=== PATIENT | female | born 1990 | race Caucasian/White ===

== ENCOUNTER 2016-07-13 00:21 | Emergency (ER) | payer MEDICAID ==
[~2016-07-13] VITALS: Ht 167.6 cm; Wt 61.7 kg
[2016-07-13] MEDS ORDERED: AMOX500T2 PO (01:06)
[2016-07-13] MEDS ORDERED: TRAM50TA2 PO (01:06)
[2016-07-13] MEDS ORDERED: IBUP-1780 PO (01:06)
[2016-07-13 02:31] LABS: BILIRUBIN,URINE NEGATIVE (NEGATIVE); KETONES,URINE NEGATIVE (NEGATIVE); LEUKOCYTE ESTERASE ,URINE 3+ (NEGATIVE); NITRITE,URINE NEGATIVE (NEGATIVE); PH,URINE 6 (5-9); PROTEIN,URINE 2+ (NEGATIVE); UROBILINOGEN,URINE 1 MG/DL (NORMAL)
[2016-07-13] MEDS ORDERED: CEPHALEXIN 250 MG (KEFLEX) CAP PO ONE (03:00)
[2016-07-13] MEDS ORDERED: CEPH-507 PO (03:02)
--- NOTE | 2016-07-13 03:02 | ED General ---
General Chief Complaint: Oral/Throat Problems Stated Complaint: POSS STREP THROAT Nursing Triage Note: sore throat starting yesterday and possible uti starting approx 5 days ago. started amoxicillin approx 4 days ago and no relief. having urgency, frequency, pressure after urination. pt is 2 months post . Nursing Sepsis Screen: No Definite Risk Source of Information: Patient Exam Limitations: No Limitations History of Present Illness Time Seen by Provider: 01:22 Initial Comments Patient presents with urinary frequency and sore throat. See history above. She is here with her daughter as well who just tested positive for strep pharyngitis. Allergies and Home Medications Allergies Coded Allergies: No Known Drug Allergies (Unverified , 07/13/16) Home Medications Amoxicillin 500 Mg Tablet, 500 MG PO TID, (Reported) Cephalexin 500 Mg Capsule, 500 MG PO QID, #28 Prescribed by: MARLEN PERSON on 07/13/16 0302 Ibuprofen 800 Mg Tablet, 800 MG PO Q8H PRN for PAIN, (Reported) Tramadol HCl 50 Mg Tablet, 50 MG PO Q6H PRN for PAIN-MILD, (Reported) Constitutional: no symptoms reported EENTM: see HPI Respiratory: no symptoms reported Cardiovascular: no symptoms reported Gastrointestinal: no symptoms reported Genitourinary: see HPI : No Musculoskeletal: no symptoms reported Skin: no symptoms reported Psychiatric/Neurological: No Symptoms Reported Hematologic/Lymphatic: No Symptoms Reported Past Ezhivun-Tzkgmm-Byvgzz Hx Patient Social History Alcohol Use: Denies Use Recreational Drug Use: No (marijuana) Smoking Status: Current Everyday Smoker Type Used: Cigarettes 2nd Hand Smoke Exposure: Yes Recent Foreign Travel: No Contact w/Someone Who Travel: No Recent Infectious Disease Expo: No Recent Hopitalizations: No Immunizations Up To Date Tetanus Booster (TDap): Less than 5yrs PED Vaccines UTD: No Seasonal Allergies Seasonal Allergies: No Surgeries HX Surgeries: Yes (Ear tubes) Respiratory Hx Respiratory Disorders: No Cardiovascular Hx Cardiac Disorders: No Neurological Hx Neurological Disorders: No Reproductive System : No Hx : 4 Hx Para: 4 Hx Reproductive Disorders: No Sexually Transmitted Disease: No Genitourinary Hx Genitourinary Disorders: No Gastrointestinal Hx Gastrointestinal Disorders: No Musculoskeletal Hx Musculoskeletal Disorders: No Endocrine Hx Endocrine Disorders: No (thyroid issues during ) HEENT HX ENT Disorders: No Cancer Hx Cancer: No Psychosocial Hx Psychiatric Problems: No Integumentary HX Skin/Integumentary Disorder: No Blood Transfusions Hx Blood Disorders: No Physical Exam Vital Signs Vital Sign - Last 12Hours 07/13/16 00:52 Temp 97.2 Pulse 76 Resp 18 B/P (MAP) 124/96 Pulse Ox 99 O2 Delivery Room Air Capillary Refill : Less Than 3 Seconds General Appearance: No Apparent Distress, WD/WN HEENT: PERRL/EOMI, Normal ENT Inspection, Pharyngeal Erythema Neck: Normal Inspection Respiratory: Lungs Clear, Normal Breath Sounds, No Accessory Muscle Use, No Respiratory Distress Cardiovascular: Regular Rate, Rhythm, No Edema, No Murmur Gastrointestinal: Non Tender, Soft Extremity: Normal Inspection Neurologic/Psychiatric: Alert, Oriented x3, No Motor/Sensory Deficits, Normal Mood/Affect, 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 Rapid strep test was negative. Antibiotics changed to Keflex. First dose given in the emergency room. Daughter was treated for strep pharyngitis. Departure Impression Impression: Primary Impression: Urinary tract infection Qualified Codes: N39.0 - Urinary tract infection, site not specified Additional Impression: Sore throat Disposition: HOME, SELF-CARE Condition: Improved Departure-Patient Inst. Decision time for Depature: 03:01 Referrals: NO,LOCAL PHYSICIAN (PCP) Primary Care Physician Patient Instructions: Urinary Tract Infections in Adults Add. Discharge Instructions: Drink plenty of clear liquids. Follow-up on your urine culture results in about 48 hours with a phone call to your primary care provider or the ER. Complete your antibiotics as prescribed. Replace your toothbrush and any other oral instruments about 4 days into antibiotic treatment. All discharge instructions reviewed with patient and/or family. Voiced understanding. Scripts Cephalexin (Keflex) 500 Mg Capsule 500 MG PO QID, #28 CAP Prov: MARLEN BUCK MD 07/13/16 MARLEN BUCK MD Jul 13, 2016 03:02
[2016-07-13 03:36] VITALS: BP 124/96
== END 2016-07-13 03:36 | disposition home or self-care (01) ==
LOC: ER 00:25
DX: N39.0 Urinary tract infection, site not specified (principal); J02.9 Acute pharyngitis, unspecified; F17.210 Nicotine dependence, cigarettes, uncomplicated
CPT/HCPCS: 81000; 87088; 87186; 87430; 99282

== ENCOUNTER 2017-06-19 08:15 | Emergency (ER) | payer SELFPAY ==
[~2017-06-19] VITALS: Ht 165.1 cm; Wt 74.8 kg
[~2017-06-19 08:15] MED LIST: AMOX500T2 PO; CEPH-507 PO; IBUP-1780 PO; TRAM50TA2 PO
[2017-06-19] MEDS ORDERED: AMOX500C2 PO (08:44)
--- NOTE | 2017-06-19 08:45 | ED EENT ---
History of Present Illness General Chief Complaint: Oral/Throat Problems Stated Complaint: THROAT SORE AND SWOLLEN Nursing Triage Note: PT AMBULATED TO ROOM 10 W/O DIFFICULTIES. PT C/O SORE THROAT THAT STARTED LAST NIGHT. C/O FEELING OF PRESSURE IN EARS AND SINUSES. PT STATED SHE WAS HAVING DIFFICULTIES BREATHING AND SWALLOWING THIS MORNING. Source: patient Exam Limitations: no limitations History of Present Illness Date Seen by Provider: Jun 19, 2017 Time Seen by Provider: 08:33 Initial Comments Here with report of sore throat, tonsillar swelling and white patches noted on the tonsils. She did start amoxicillin that she had at home but it isn't prescription. She states that she has history of frequent strep throat. Complains of nasal congestion and frontal sinus tenderness. Reports feeling hot but denies nausea, vomiting or diarrhea. Denies abdominal pain. Timing/Duration: gradual Severity: moderate Location: throat Modifying Factors: Improves With Antibiotics Associated Symptoms: No cough, No ear drainage, fever, nasal congestion/ drainage, sinus infection, sore throat, No voice change Allergies and Home Medications Allergies Coded Allergies: No Known Drug Allergies (Unverified , 07/13/16) Home Medications Amoxicillin 500 Mg Tablet, 500 MG PO TID, (Reported) Cephalexin 500 Mg Capsule, 500 MG PO QID Prescribed by: MARLEN PERSON on 07/13/16 0302 Ibuprofen 800 Mg Tablet, 800 MG PO Q8H PRN for PAIN, (Reported) Tramadol HCl 50 Mg Tablet, 50 MG PO Q6H PRN for PAIN-MILD, (Reported) Patient Home Medication List Home Medication List Reviewed: Yes Review of Systems Constitutional: see HPI, No chills, fever Eyes: No Symptoms Reported Ears: No Symptoms Reported Nose: see HPI Mouth: no symptoms reported Throat: see HPI Respiratory: No short of breath, No wheezing Cardiovascular: no symptoms reported Gastrointestinal: no symptoms reported Past Lwxjwpj-Pgezkh-Jtwadv Hx Patient Social History Alcohol Use: Denies Use Recreational Drug Use: No Smoking Status: Current Everyday Smoker Type Used: Cigarettes 2nd Hand Smoke Exposure: Yes Recent Foreign Travel: No Contact w/Someone Who Travel: No Recent Infectious Disease Expo: No Recent Hopitalizations: No Physical Abuse: No Sexual Abuse: No Immunizations Up To Date Tetanus Booster (TDap): Less than 5yrs PED Vaccines UTD: No Seasonal Allergies Seasonal Allergies: No Surgeries History of Surgeries: Yes (Ear tubes) Respiratory History of Respiratory Disorde: No Cardiovascular History of Cardiac Disorders: No Neurological History of Neurological Disord: No Reproductive System Hx Reproductive Disorders: No Sexually Transmitted Disease: No Gastrointestinal History of Gastrointestinal Di: No Musculoskeletal History of Musculoskeletal Dis: No Endocrine History of Endocrine Disorders: No (thyroid issues during ) Cancer History of Cancer: No Psychosocial History of Psychiatric Problem: No Suicide Risk Score: 0 Integumentary History of Skin or Integumenta: No Blood Transfusions History of Blood Disorders: No Reviewed Nursing Assessment Reviewed/Agree w Nursing PMH: Yes Family Medical History Significant Family History: No Pertinent Family Hx Physical Exam Vital Signs Vital Signs - First Documented 06/19/17 08:21 Temp 97.7 Pulse 109 Resp 18 B/P (MAP) 108/81 (90) O2 Delivery Room Air General Appearance: WD/WN, no apparent distress Nose: sinus tenderness, other (moderate bilateral congestion) Mouth/Throat: pharynx swelling, tonsillar exudate, tonsillar swelling Neck: full range of motion, supple, lymphadenopathy (R), lymphadenopathy (L) Cardiovascular: regular rate, rhythm, no murmur Respiratory: lungs clear, normal breath sounds Neurologic/Psychiatric: alert, oriented x 3 Skin: normal color, warm/dry Progress/Results/Core Measures Results/Orders Vital Signs/I&O Vital Sign - Last 12Hours 06/19/17 08:21 Temp 97.7 Pulse 109 Resp 18 B/P (MAP) 108/81 (90) O2 Delivery Room Air Blood Pressure Mean: 90 Progress Note : Progress Note Seen and evaluated. Discharged home with return precautions. Patient verbalize understanding instructions and agreement with plan. We will treat subjectively for strep pharyngitis based on symptoms and physical exam findings. Patient is in agreement. Departure Impression Impression: Primary Impression: Streptococcal sore throat Disposition: 01 HOME, SELF-CARE Condition: Stable Departure-Patient Inst. Decision time for Depature: 08:43 Referrals: NO,LOCAL PHYSICIAN (PCP/Family) Primary Care Physician Patient Instructions: Strep Throat (DC) Add. Discharge Instructions: All discharge instructions reviewed with patient and/or family. Voiced understanding. Take medications as directed. Follow-up with your DrRuslan in a few days for recheck. Return for worse pain, fever, vomiting, weakness, breathing problems or other concerns as needed. You may take ibuprofen 800 mg every 8 hours as needed for pain. You may take Tylenol/acetaminophen 1000 mg every 8 hours as needed for pain. Drink plenty of fluids. Scripts Amoxicillin (Amoxicillin) 500 Mg Capsule 500 MG PO TID, #21 CAP 0 Refills Prov: LEONARD CARRERA MD 06/19/17 LEONARD CARRERA MD Jun 19, 2017 08:45
[2017-06-19 08:56] VITALS: BP 106/80
== END 2017-06-19 08:49 | disposition home or self-care (01) ==
LOC: EDUNIT# 08:15 → ER 08:17
DX: J02.0 Streptococcal pharyngitis (principal); F17.210 Nicotine dependence, cigarettes, uncomplicated; Z96.22 Myringotomy tube(s) status
CPT/HCPCS: 99282

== ENCOUNTER 2018-08-15 20:57 | Emergency (ER) | payer SELFPAY ==
[~2018-08-15] VITALS: Ht 167.6 cm; Wt 79.4 kg
[~2018-08-15 20:57] MED LIST changes: +AMOX500C2 PO
[2018-08-15] MEDS ORDERED: RX-TRIMETH/SULFA. 160-800 MG (BACTRIM DS) TAB PPK#2 PO STA (21:39)
[2018-08-15] MEDS ORDERED: SULF1TAB35 PO (21:45)
--- NOTE | 2018-08-15 21:45 | ED Integumentary General ---
General Chief Complaint: Skin/Wound Problems Stated Complaint: SKIN LESION ON R THIGH Nursing Triage Note: skin wound to medial thigh. Source: patient Exam Limitations: no limitations History of Present Illness Date Seen by Provider: August 15, 2018 Time Seen by Provider: 21:41 Initial Comments To ER with concerns of an abscess to the proximal medial left thigh for a couple of days. No fevers or chills. No nausea or vomiting or systemic symptoms. She is concerned this may be MRSA. She has similar appearing lesions to the right low proximal medial thigh and to the left axilla which is been recurrent issues for her. Timing/Duration: just prior to arrival Severity: moderate Associated Symptoms: denies symptoms Allergies and Home Medications Allergies Coded Allergies: No Known Drug Allergies (Unverified , 07/13/16) Patient Home Medication List Home Medication List Reviewed: Yes Review of Systems Review of Systems Constitutional: see HPI EENTM: see HPI Respiratory: no symptoms reported Cardiovascular: no symptoms reported Genitourinary: no symptoms reported Musculoskeletal: no symptoms reported Skin: no symptoms reported Psychiatric/Neurological: No Symptoms Reported Past Guqbvuj-Patglh-Vcoaja Hx Patient Social History Alcohol Use: Denies Use Recreational Drug Use: No Smoking Status: Current Everyday Smoker Type Used: Cigarettes 2nd Hand Smoke Exposure: Yes Recent Foreign Travel: No Contact w/Someone Who Travel: No Recent Infectious Disease Expo: No Recent Hopitalizations: No Immunizations Up To Date Tetanus Booster (TDap): Less than 5yrs PED Vaccines UTD: No Seasonal Allergies Seasonal Allergies: No Past Medical History Surgeries: Yes (Ear tubes) Respiratory: No Cardiac: No Neurological: No : No Last Menstrual Period: August 05, 2018 Reproductive Disorders: No Sexually Transmitted Disease: No Genitourinary: No Gastrointestinal: No Musculoskeletal: No Endocrine: No HEENT: No Cancer: No Psychosocial: No Integumentary: No Blood Disorders: No Family Medical History No Pertinent Family Hx Physical Exam Vital Signs Vital Signs - First Documented 08/15/18 21:21 Temp 98.3 Pulse 85 Resp 18 B/P (MAP) 133/77 (95) Pulse Ox 97 O2 Delivery Room Air Capillary Refill : Less Than 3 Seconds General Appearance: WD/WN, no apparent distress HEENT: PERRL/EOMI, normal ENT inspection Respiratory: no respiratory distress, no accessory muscle use Neurologic/Psychiatric: alert, normal mood/affect, oriented x 3 Skin: normal color, warm/dry Skin Problem Location: other (there is a dime-sized area of fluctuance and purplish erythema to the proximal medial left thigh. This does have the appearance of having to fistula at the inferior and one at the most lateral aspect of the wound. This was opened further. I anesthetized with 1 mL of 1% lidocaine with epinephrine. Wound was cleaned with a alcohol swab, then opened with an 11 blade scalpel, culture collected) Progress/Results/Core Measures Results/Orders My Orders Orders - ALE KURTZ APRN Wound Culture (08/15/18 21:39) Rx-Trimeth/Sulfameth Ds Tab (Rx-Bactrim/ (08/15/18 21:39) Vital Signs/I&O 08/15/18 21:21 Temp 98.3 Pulse 85 Resp 18 B/P (MAP) 133/77 (95) Pulse Ox 97 O2 Delivery Room Air Blood Pressure Mean: 95 Departure Impression Primary Impression: Abscess Additional Impression: Hidradenitis suppurativa Disposition: 01 HOME, SELF-CARE Condition: Stable Departure-Patient Inst. Decision time for Depature: 21:44 Referrals: NO,LOCAL PHYSICIAN (PCP/Family) Primary Care Physician Patient Instructions: Hidradenitis Suppurativa Add. Discharge Instructions: 1. Warm compresses to this area, antibiotics as directed Return to ER for any concerns. Culture should be back in about 48 hours. All discharge instructions reviewed with patient and/or family. Voiced understanding. Scripts Sulfamethoxazole/Trimethoprim (Bactrim Ds Tablet) 1 Each Tablet 1 EACH PO BID, #14 TAB Prov: ALE KURTZ APRN 08/15/18 ALE KURTZ APRN August 15, 2018 21:45
[2018-08-15 21:52] VITALS: BP 133/77
== END 2018-08-15 21:54 | disposition home or self-care (01) ==
LOC: EDUNIT# 20:57 → ER 20:59
DX: L02.416 Cutaneous abscess of left lower limb (principal); L73.2 Hidradenitis suppurativa; F17.210 Nicotine dependence, cigarettes, uncomplicated; Z96.22 Myringotomy tube(s) status
CPT/HCPCS: 87070; 87205; 99283

== ENCOUNTER 2018-11-17 12:36 | Emergency (ER) | payer SELFPAY ==
[~2018-11-17] VITALS: Ht 165.1 cm; Wt 77.1 kg
[~2018-11-17 12:36] MED LIST changes: +SULF1TAB35 PO
[2018-11-17] MEDS ORDERED: AUGMENTIN 875 MG TAB (AMOXICILLIN/CLAVULANATE) PO SCH (13:00)
[2018-11-17] MEDS ORDERED: LIDOCAINE 2% VISCOUS 15 ML UDC PO ONE (13:00)
[2018-11-17] MEDS ORDERED: AMOX-358 PO (13:02)
--- NOTE | 2018-11-17 13:02 | ED EENT ---
History of Present Illness General Chief Complaint: Dental Problems/Pain Stated Complaint: DENTAL PAIN Nursing Triage Note: complaint of pain rt lower tooth. Source: patient Exam Limitations: no limitations History of Present Illness Date Seen by Provider: Nov 17, 2018 Time Seen by Provider: 12:59 Initial Comments To ER with reports of left upper and lower dental pain. She took 3 left over amoxicillin about a week ago which temporarily improved the pain. Timing/Duration: abrupt Severity: moderate Location: mouth, dental Associated Symptoms: denies symptoms Allergies and Home Medications Allergies Coded Allergies: No Known Drug Allergies (Unverified , 07/13/16) Home Medications Sulfamethoxazole/Trimethoprim 1 Each Tablet, 1 EACH PO BID Prescribed by: ALE KURTZ on 08/15/18 2076 Patient Home Medication List Home Medication List Reviewed: Yes Review of Systems Review of Systems Constitutional: see HPI Eyes: No Symptoms Reported Ears: No Symptoms Reported Nose: no symptoms reported Mouth: see HPI Throat: no symptoms reported Respiratory: no symptoms reported Musculoskeletal: no symptoms reported Past Gvxmano-Bhwvmp-Mrknnt Hx Patient Social History Type Used: Cigarettes 2nd Hand Smoke Exposure: Yes Recent Foreign Travel: No Contact w/Someone Who Travel: No Recent Infectious Disease Expo: No Recent Hopitalizations: No Immunizations Up To Date Tetanus Booster (TDap): Less than 5yrs PED Vaccines UTD: No Seasonal Allergies Seasonal Allergies: No Past Medical History Surgeries: Yes (Ear tubes) Respiratory: No Cardiac: No Neurological: No Reproductive Disorders: No Sexually Transmitted Disease: No Genitourinary: No Gastrointestinal: No Musculoskeletal: No Endocrine: No HEENT: No Cancer: No Psychosocial: No Integumentary: No Blood Disorders: No Family Medical History No Pertinent Family Hx Physical Exam Vital Signs Vital Signs - First Documented 11/17/18 12:45 Temp 97.6 Pulse 92 Resp 18 B/P (MAP) 114/76 (89) Pulse Ox 97 O2 Delivery Room Air Height, Weight, BMI Height: 5'5.00" Weight: 170lbs. oz. 77.319420qn; BMI Method:Estimated General Appearance: WD/WN, no apparent distress Eyes: bilateral eye normal inspection, bilateral eye PERRL, bilateral eye EOMI Ears: bilateral ear auricle normal, bilateral ear canal normal, bilateral ear TM normal Mouth/Throat: other (you I told) Neck: non-tender, full range of motion Respiratory: no respiratory distress, no accessory muscle use Gastrointestinal: normal bowel sounds, non tender Neurologic/Psychiatric: alert, normal mood/affect, oriented x 3 Skin: normal color, warm/dry Progress/Results/Core Measures Results/Orders My Orders Orders - ALE KURTZ APRN Lidocaine 2% Viscous 15 Ml (Xylocaine Vi (11/17/18 13:00) Amoxicillin/Clavulanate Tablet (Augmenti (11/17/18 13:00) Vital Signs/I&O 11/17/18 12:45 Temp 97.6 Pulse 92 Resp 18 B/P (MAP) 114/76 (89) Pulse Ox 97 O2 Delivery Room Air Blood Pressure Mean: 89 Departure Communication (Admissions) Over the left wisdom tooth isn't inflamed piece of tissue consistent with pericoronitis. The left upper wisdom tooth is eroded and carious. Impression Primary Impression: Dental caries Additional Impression: Acute pericoronitis Disposition: HOME, SELF-CARE Condition: Improved Departure-Patient Inst. Decision time for Depature: 13:01 Referrals: ZUHAIR SUTTON DDS NO,LOCAL PHYSICIAN (PCP) Primary Care Physician Patient Instructions: Dental Pain (DC) Scripts Amoxicillin/Potassium Clav (Augmentin 875-125 Tablet) 1 Each Tablet 1 EACH PO BID, #14 TAB 0 Refills Prov: ALE KURTZ APRN 11/17/18 Images Mouth/Nose 1 - Tenderness ALE KURTZ APRN Nov 17, 2018 13:02
[2018-11-17 13:24] VITALS: BP 114/76
== END 2018-11-17 13:26 | disposition home or self-care (01) ==
LOC: EDUNIT# 12:36 → ER 12:37
DX: K05.20 Aggressive periodontitis, unspecified (principal); K02.9 Dental caries, unspecified; Z77.22 Contact with and (suspected) exposure to environmental tobacco smoke (acute) (chronic)
CPT/HCPCS: 99283

== ENCOUNTER 2020-10-01 00:33 | Emergency (ER) | payer SELFPAY ==
[~2020-10-01] VITALS: Ht 165 cm; Wt 78.0 kg
[~2020-10-01 00:33] MED LIST changes: +AMOX-358 PO; -SULF1TAB35 PO; +SULF1TAB38 PO; -TRAM50TA2 PO; +TRM50T PO
[2020-10-01 00:40] VITALS: BP 141/94
[2020-10-01 00:52] LABS: BILIRUBIN,URINE NEGATIVE (NEGATIVE); CLARITY,URINE SL CLOUDY; COLOR,URINE RED; GLUCOSE, URINE (UA) 1+ (NEGATIVE); KETONES,URINE TRACE (NEGATIVE); LEUKOCYTE ESTERASE ,URINE TRACE (NEGATIVE); NITRITE,URINE POSITIVE (NEGATIVE); PROTEIN,URINE 2+ (NEGATIVE)
[2020-10-01 00:59] LABS: BACTERIA,URINE FEW /HPF
[2020-10-01] MEDS ORDERED: RX-NITROFURANTOIN 100 MG (MACROBID) CAP PPK#2 PO STA (01:01)
--- NOTE | 2020-10-01 01:01 | ED GU-Female ---
General Chief Complaint: - Urinary Stated Complaint: POSS UTI Nursing Triage Note: c/o frequent urination Source: patient History of Present Illness Date Seen by Provider: Oct 01, 2020 Time Seen by Provider: 00:47 Initial Comments PT ARRIVES VIA POV FROM HOME C/O URINARY URGENCY AND FREQUENCY SINCE YESTERDAY STATES SHE IS URINATING EVERY 30 MINUTES NO PAIN ON URINATION DOES HAVE PRESSURE OVER HER BLADDER, BUT NOT ACTUAL ABDOMINAL PAIN NO BACK PAIN NO FEVER NO NAUSEA/VOMITING RARELY GETS UTI'S, BUT HAD ONE A COUPLE OF MONTHS AGO--NO PROBLEMS AGAIN UNTIL YESTERDAY STATES SHE IS GOING TO [facility] THIS AM, AND WANTED IT TAKEN CARE OF BEFORE SHE LEFT TOWN. TOOK OTC AZO X 1 AT 2200--SOME RELIEF LMP 09/16/20. NORMAL. NO CONTROL NO HOSPICE CLINICAL MANAGER COMPLAINTS PCP: [facility] [place] Allergies and Home Medications Allergies Coded Allergies: No Known Drug Allergies (Unverified , 07/13/16) Home Medications Amoxicillin/Potassium Clav 1 Each Tablet, 1 EACH PO BID Prescribed by: ALE KURTZ on 11/17/18 1302 Nitrofurantoin Monohyd/M-Cryst 100 Mg Capsule, 1 TAB PO BID Prescribed by: LILI ELIZALDE on 10/01/20 0102 Phenazopyridine HCl 200 Mg Tablet, 1 TAB PO TID Prescribed by: LILI ELIZALDE on 10/01/20 0102 Sulfamethoxazole/Trimethoprim 1 Each Tablet, 1 EACH PO BID Prescribed by: ALE KURTZ on 08/15/18 2145 Patient Home Medication List Home Medication List Reviewed: Yes Review of Systems Review of Systems Constitutional: no symptoms reported Respiratory: no symptoms reported Cardiovascular: no symptoms reported Gastrointestinal: see HPI Genitourinary: see HPI : No LMP: Sep 16, 2020 Musculoskeletal: no symptoms reported Skin: no symptoms reported Psychiatric/Neurological: No Symptoms Reported Endocrine: No Symptoms Reported Hematologic/Lymphatic: No Symptoms Reported Past Cwyqctl-Pczcpb-Lsmiih Hx Patient Social History Tobacco Use?: Yes (1 PPD) Tobacco type used: Cigarettes Smoking Status: Current Everyday Smoker Use of E-Cig and/or Vaping dev: No Substance use?: No Alcohol Use?: No Pt feels they are or have been: No Immunizations Up To Date Tetanus Booster (TDap): Less than 5yrs PED Vaccines UTD: No Seasonal Allergies Seasonal Allergies: No Past Medical History Surgeries: Yes (BMT'S) Ear Surgery Respiratory: No Cardiac: No Neurological: No Reproductive Disorders: No Sexually Transmitted Disease: No Genitourinary: No Gastrointestinal: No Musculoskeletal: No Endocrine: No HEENT: Yes (BMT'S CHILD) Chronic Ear Infection Cancer: No Psychosocial: No Integumentary: No Blood Disorders: No Family Medical History No Pertinent Family Hx Physical Exam Vital Signs Vital Signs - First Documented 10/01/20 00:40 Temp 36.0 Pulse 85 Resp 16 B/P (MAP) 141/94 (110) Pulse Ox 96 O2 Delivery Room Air Capillary Refill : Less Than 3 Seconds Height, Weight, BMI Height: 5'5.00" Weight: 170lbs. oz. 77.948732ay; 28.00 BMI Method:Estimated General Appearance: WD/WN, no apparent distress, other (DOES NOT APPEAR TO BE IN ANY DISCOMFORT OR DISTRESS. ) Cardiovascular: regular rate, rhythm, no murmur Respiratory: normal breath sounds Gastrointestinal: normal bowel sounds, non tender, soft Back: normal inspection, no CVA tenderness Extremities: normal inspection, no pedal edema Neurologic/Psychiatric: no motor/sensory deficits, alert, normal mood/affect, oriented x 3 Skin: normal color, warm/dry Progress/Results/Core Measures Suspected Sepsis SIRS Temperature: Pulse: 85 Respiratory Rate: 16 Blood Pressure 141 /94 Mean: 110 Results/Orders Lab Results Laboratory Tests Test 10/01/20 00:42 Range/Units Urine Color RED H Urine Clarity SL CLOUDY Urine pH 5.0 5-9 Urine Specific [place] 1.020 1.016-1.022 Urine Protein 2+ H NEGATIVE Urine Glucose (UA) 1+ H NEGATIVE Urine Ketones TRACE H NEGATIVE Urine Nitrite POSITIVE H NEGATIVE Urine Bilirubin NEGATIVE NEGATIVE Urine Urobilinogen >=8.0 < = 1.0 MG/DL Urine Leukocyte Esterase TRACE H NEGATIVE Urine RBC (Auto) NEGATIVE NEGATIVE Urine RBC NONE /HPF Urine WBC 2-5 /HPF Urine Squamous Epithelial Cells 10-25 H /HPF Urine Crystals NONE /LPF Urine Bacteria FEW H /HPF Urine Casts NONE /LPF Urine Mucus SMALL H /LPF Urine Culture Indicated YES My Orders Orders - LILI ELIZALDE DO Urine Bedside (10/01/20 00:45) Ua Culture If Indicated (10/01/20 00:45) Urine Culture (10/01/20 00:42) Rx-Nitrofurantoin [place] (Rx-Macrobid) (10/01/20 01:01) Vital Signs/I&O 10/01/20 00:40 Temp 36.0 Pulse 85 Resp 16 B/P (MAP) 141/94 (110) Pulse Ox 96 O2 Delivery Room Air Capillary Refill : Less Than 3 Seconds Blood Pressure Mean: 110 Departure Impression Primary Impression: Urinary tract infection Disposition: 01 HOME, SELF-CARE Condition: Stable Departure-Patient Inst. Decision time for Depature: 01:02 Referrals: [facility] Patient Instructions: Urinary Tract Infection, Adult (DC) Add. Discharge Instructions: LOTS OF CLEAR LIQUIDS TYLENOL AND MOTRIN NEEDED FOR PAIN FOLLOW UP WITH [facility] IN 3-4 DAYS IF NO BETTER All discharge instructions reviewed with patient and/or family. Voiced understanding. Scripts Phenazopyridine HCl (Pyridium) 200 Mg Tablet 1 TAB PO TID, #15 TAB Prov: LILI ELIZALDE DO 10/01/20 Nitrofurantoin Monohyd/M-Cryst (Macrobid 100 mg Capsule) 100 Mg Capsule 1 TAB PO BID, #20 CAP Prov: LILI ELIZALDE DO 10/01/20 LILI ELIZALDE DO Oct 01, 2020 01:01
[2020-10-01] MEDS ORDERED: NITR-65 PO (01:02)
[2020-10-01] MEDS ORDERED: PHEN-640 PO (01:02)
== END 2020-10-01 01:04 | disposition home or self-care (01) ==
LOC: EDUNIT# 00:33 → ER 00:36
DX: N39.0 Urinary tract infection, site not specified (principal); F17.210 Nicotine dependence, cigarettes, uncomplicated
CPT/HCPCS: 81000; 84703; 87088; 99283

== ENCOUNTER 2021-09-20 21:42 | Emergency (ER) | payer SELFPAY ==
[~2021-09-20] VITALS: Ht 165.1 cm; Wt 85.3 kg
[~2021-09-20 21:42] MED LIST changes: +NITR-65 PO; +PHEN-640 PO
[2021-09-20 22:02] LABS: BILIRUBIN,URINE NEGATIVE (NEGATIVE); CLARITY,URINE CLEAR; COLOR,URINE YELLOW; GLUCOSE, URINE (UA) NEGATIVE (NEGATIVE); KETONES,URINE TRACE (NEGATIVE); LEUKOCYTE ESTERASE ,URINE NEGATIVE (NEGATIVE); NITRITE,URINE NEGATIVE (NEGATIVE); PROTEIN,URINE NEGATIVE (NEGATIVE)
[2021-09-20 22:12] LABS: BACTERIA,URINE FEW /HPF; WBC,URINE 0-2 /HPF
[2021-09-20] MEDS ORDERED: KETOROLAC 30 MG/ML VIAL IVP ONE (22:15)
[2021-09-20] MEDS ORDERED: fentaNYL INJ 100 MCG/2 ML AMP IVP ONE (22:15)
--- NOTE | 2021-09-20 22:15 | ED GU-Female ---
General Chief Complaint: - Reproductive Stated Complaint: ABD PAIN Nursing Triage Note: PT ARRIVAL TO ER WITH COMPLAINT OF SUDDEN ONSET OF PRESSURE LIKE PAIN IN ABDOMEN. PT STATES THAT IT FEELS LIKE A GAS PAIN BUT WORSENS WHEN WALKING. AT REST PAIN IS A 7/10 AND WHEN WALKING ITS 10/10. PAIN IS SUPRAPUBIC AND PT STATES THAT SHE CAN FEEL IT THROUGH HER BACK SIDE. Source: patient Exam Limitations: no limitations History of Present Illness Date Seen by Provider: Sep 20, 2021 Time Seen by Provider: 22:00 Initial Comments This is a 31-year-old female who presented to the ER with complaints of sudden onset abdominal pain. States that she was "completely fine" and all of a sudden she had sharp stabbing pain that brought her to her knees and caused her to vomit. Allergies and Home Medications Allergies Coded Allergies: No Known Drug Allergies (Unverified , 07/13/16) Patient Home Medication List Amoxicillin/Potassium Clav (Augmentin 875-125 Tablet) 1 Each Tablet, 1 EACH PO BID Prescribed by: ALE KURTZ on 11/17/18 1302 Nitrofurantoin Monohyd/M-Cryst (Macrobid 100 mg Capsule) 100 Mg Capsule, 1 TAB PO BID Prescribed by: LILI ELIZALDE on 10/01/20 0102 Phenazopyridine HCl (Pyridium) 200 Mg Tablet, 1 TAB PO TID Prescribed by: LILI ELIZALDE on 10/01/20 0102 Sulfamethoxazole/Trimethoprim (Bactrim Ds Tablet) 1 Each Tablet, 1 EACH PO BID Prescribed by: ALE KURTZ on 08/15/18 2145 Past Hfttsvj-Gugiev-Skwvmi Hx Patient Social History Tobacco Use?: Yes Tobacco type used: Cigarettes Smoking Status: Current Everyday Smoker Use of E-Cig and/or Vaping dev: No Substance use?: No Alcohol Use?: No Pt feels they are or have been: No Immunizations Up To Date Tetanus Booster (TDap): Less than 5yrs PED Vaccines UTD: No Influenza Vaccine Up-to-Date: No; Not Current Seasonal Allergies Seasonal Allergies: No Past Medical History Surgeries: Yes (BMT'S) Ear Surgery Respiratory: No Cardiac: No Neurological: No Reproductive Disorders: No Sexually Transmitted Disease: No Genitourinary: No Gastrointestinal: No Musculoskeletal: No Endocrine: No HEENT: Yes (BMT'S CHILD) Chronic Ear Infection Cancer: No Psychosocial: No Integumentary: No Blood Disorders: No Family Medical History No Pertinent Family Hx Physical Exam Vital Signs Vital Signs - First Documented 09/20/21 21:58 Temp 36.9 Pulse 110 Resp 16 B/P (MAP) 137/81 (99) Pulse Ox 99 O2 Delivery Room Air Capillary Refill : Less Than 3 Seconds Height, Weight, BMI Height: 5'5.00" Weight: 170lbs. oz. 77.600505rw; 31.00 BMI Method:Estimated Progress/Results/Core Measures Suspected Sepsis SIRS Temperature: Pulse: 110 Respiratory Rate: 16 Laboratory Tests 09/20/21 22:00: White Blood Count 8.8 Blood Pressure 137 /81 Mean: 99 Laboratory Tests 09/20/21 22:00: Creatinine 0.81, Platelet Count 257, Total Bilirubin 0.9 Results/Orders Lab Results Laboratory Tests Test 09/20/21 21:55 09/20/21 22:00 Range/Units Urine Color YELLOW Urine Clarity CLEAR Urine pH 6.0 5-9 Urine Specific Chambers >=1.030 1.016-1.022 Urine Protein NEGATIVE NEGATIVE Urine Glucose (UA) NEGATIVE NEGATIVE Urine Ketones TRACE H NEGATIVE Urine Nitrite NEGATIVE NEGATIVE Urine Bilirubin NEGATIVE NEGATIVE Urine Urobilinogen 1.0 < = 1.0 MG/DL Urine Leukocyte Esterase NEGATIVE NEGATIVE Urine RBC (Auto) NEGATIVE NEGATIVE Urine RBC NONE /HPF Urine WBC 0-2 /HPF Urine Squamous Epithelial Cells 2-5 /HPF Urine Renal Epithelial Cells NONE /HPF Urine Crystals NONE /LPF Urine Bacteria FEW H /HPF Urine Casts NONE /LPF Urine Mucus SMALL H /LPF Urine Culture Indicated NO Urine Test NEGATIVE NEGATIVE White Blood Count 8.8 4.3-11.0 10^3/uL Red Blood Count 5.36 H 3.80-5.11 10^6/uL Hemoglobin 15.9 11.5-16.0 g/dL Hematocrit 48 35-52 % Mean Corpuscular Volume 89 80-99 fL Mean Corpuscular Hemoglobin 30 25-34 pg Mean Corpuscular Hemoglobin Concent 33 32-36 g/dL Red Cell Distribution Width 13.3 10.0-14.5 % Platelet Count 257 130-400 10^3/uL Mean Platelet Volume 10.5 9.0-12.2 fL Immature Granulocyte % (Auto) 1 % Neutrophils (%) (Auto) 61 42-75 % Lymphocytes (%) (Auto) 28 12-44 % Monocytes (%) (Auto) 6 0-12 % Eosinophils (%) (Auto) 4 0-10 % Basophils (%) (Auto) 1 0-10 % Neutrophils # (Auto) 5.3 1.8-7.8 10^3/uL Lymphocytes # (Auto) 2.5 1.0-4.0 10^3/uL Monocytes # (Auto) 0.6 0.0-1.0 10^3/uL Eosinophils # (Auto) 0.4 H 0.0-0.3 10^3/uL Basophils # (Auto) 0.0 0.0-0.1 10^3/uL Immature Granulocyte # (Auto) 0.1 0.0-0.1 10^3/uL Sodium Level 142 135-145 MMOL/L Potassium Level 3.7 3.6-5.0 MMOL/L Chloride Level 107 98-107 MMOL/L Carbon Dioxide Level 22 21-32 MMOL/L Anion Gap 13 5-14 MMOL/L Blood Urea Nitrogen 13 7-18 MG/DL Creatinine 0.81 0.60-1.30 MG/DL Estimat Glomerular Filtration Rate 100 BUN/Creatinine Ratio 16 Glucose Level 101 70-105 MG/DL Calcium Level 9.7 8.5-10.1 MG/DL Corrected Calcium 8.5-10.1 MG/DL Total Bilirubin 0.9 0.1-1.0 MG/DL Aspartate Amino Transf (AST/SGOT) 21 5-34 U/L Alanine Aminotransferase (ALT/SGPT) 29 0-55 U/L Alkaline Phosphatase 65 40-136 U/L Total Protein 7.8 6.4-8.2 GM/DL Albumin 4.7 H 3.2-4.5 GM/DL My Orders Orders - ANKUR MACE APRN Ua Culture If Indicated (09/20/21 21:45) Urine Bedside (09/20/21 21:45) Cbc With Automated Diff (09/20/21 22:05) Comprehensive Metabolic Panel (09/20/21 22:05) Ct Abdomen/Pelvis W (09/20/21 22:05) Ketorolac Injection (Toradol Injection) (09/20/21 22:15) Fentanyl Inj (Sublimaze Injection) (09/20/21 22:15) Hcg,Qualitative Urine (09/20/21 22:06) Methylprednisolone Sod Succ (Solu-Medrol (09/20/21 22:45) Diphenhydramine Injection (Benadryl Inje (09/20/21 22:45) Iohexol Injection (Omnipaque 350 Mg/Ml 1 (09/20/21 23:00) Sodium Chloride Flush (Catheter Flush Sy (09/20/21 23:00) Ns (Ivpb) (Sodium Chloride 0.9% Ivpb Bag (09/20/21 23:00) Medications Given in ED Current Medications Medications Dose Ordered Sig/Angel Route Start Time Stop Time Status Last Admin Dose Admin Fentanyl Citrate 25 mcg ONCE ONCE IVP 09/20/21 22:15 09/20/21 22:16 DC 09/20/21 22:13 25 MCG Iohexol 100 ml ONCE ONCE IV 09/20/21 23:00 09/20/21 23:01 DC 09/20/21 22:51 100 ML Ketorolac Tromethamine 30 mg ONCE ONCE IVP 09/20/21 22:15 09/20/21 22:16 DC 09/20/21 22:13 30 MG Sodium Chloride 10 ml NEEDED PRN IV 09/20/21 23:00 09/20/21 22:51 10 ML Sodium Chloride 100 ml ONCE ONCE IV 09/20/21 23:00 09/20/21 23:01 DC 09/20/21 22:51 80 ML Vital Signs/I&O 09/20/21 21:58 Temp 36.9 Pulse 110 Resp 16 B/P (MAP) 137/81 (99) Pulse Ox 99 O2 Delivery Room Air Capillary Refill : Less Than 3 Seconds Blood Pressure Mean: 99 Departure Impression Primary Impression: Abdominal pain Additional Impression: Ovarian cyst Disposition: HOME, SELF-CARE Condition: Improved Departure-Patient Inst. Decision time for Depature: 23:09 Referrals: NO,LOCAL PHYSICIAN (PCP/Family) Primary Care Physician Patient Instructions: Ovarian Cyst (DC), Abdominal Pain, Adult ED Add. Discharge Instructions: Plan: 1. Establish with primary care provider of your choice. You have been provided a list of local providers. 2. May take Ibuprofen 600mg by mouth every 6 hours as needed for pain. 3. Return for any new, concerning, or worsening symptoms. All discharge instructions reviewed with patient and/or family. Voiced understanding. ANKUR MACE VEGETABLE SORTER Sep 20, 2021 22:15
[2021-09-20 22:17] LABS: BASOPHILS % (AUTO) 1 % (0-10); EOSINOPHILS # (AUTO) 0.4 10^3/uL (0.0-0.3); EOSINOPHILS % (AUTO) 4 % (0-10); HEMATOCRIT 48 % (35-52); HEMOGLOBIN 15.9 g/dL (11.5-16.0); LYMPHOCYTES # (AUTO) 2.5 10^3/uL (1.0-4.0); LYMPHOCYTES % (AUTO) 28 % (12-44); MEAN CORPUSCULAR HEMOGLOBIN 30 pg (25-34); MEAN CORPUSCULAR HGB CONC 33 g/dL (32-36); MEAN CORPUSCULAR VOLUME 89 fL (80-99); MEAN PLATELET VOLUME 10.5 fL (9.0-12.2); MONOCYTES # (AUTO) 0.6 10^3/uL (0.0-1.0); MONOCYTES % (AUTO) 6 % (0-12); NEUTROPHILS # (AUTO) 5.3 10^3/uL (1.8-7.8); NEUTROPHILS % (AUTO) 61 % (42-75); PLATELET COUNT 257 10^3/uL (130-400); WHITE BLOOD COUNT 8.8 10^3/uL (4.3-11.0)
[2021-09-20 22:23] LABS: ALBUMIN 4.7 GM/DL (3.2-4.5)
[2021-09-20 22:24] LABS: CHLORIDE 107 MMOL/L (98-107); POTASSIUM 3.7 MMOL/L (3.6-5.0); SODIUM 142 MMOL/L (135-145)
[2021-09-20 22:25] LABS: CALCIUM 9.7 MG/DL (8.5-10.1)
[2021-09-20 22:26] LABS: GLUCOSE 101 MG/DL (70-105); TOTAL PROTEIN 7.8 GM/DL (6.4-8.2)
[2021-09-20 22:27] LABS: CARBON DIOXIDE 22 MMOL/L (21-32)
[2021-09-20 22:28] LABS: BILIRUBIN,TOTAL 0.9 MG/DL (0.1-1.0)
[2021-09-20 22:29] LABS: ALKALINE PHOSPHATASE 65 U/L (40-136)
[2021-09-20 22:30] LABS: CREATININE SERUM 0.81 MG/DL (0.60-1.30); GFR ESTIMATED 100
[2021-09-20 22:31] LABS: BUN/CREATININE RATIO 16
[2021-09-20 22:33] LABS: ALANINE AMINOTRANSFERASE 29 U/L (0-55)
[2021-09-20] MEDS ORDERED: methylPREDNISolone 125 MG (Solu-MEDROL) VIAL IVP ONE (22:45)
[2021-09-20] MEDS ORDERED: diphenhydrAMINE 50 MG/ML INJ (BENADRYL) IVP ONE (22:45)
[2021-09-20] MEDS ORDERED: IOHEXOL 350 MG/ML 100 ML (OMNIPAQUE 350) VIAL IV ONE (23:00)
[2021-09-20] MEDS ORDERED: NS 100 ML (IVPB) BAG IV ONE (23:00)
[2021-09-20] MEDS ORDERED: CATHETER FLUSH 10 ML SYR IV PRN (23:00)
--- NOTE | 2021-09-20 23:01 | Diagnostic Imaging Report ---
EXAMINATION: CT abdomen and pelvis with intravenous contrast. TECHNIQUE: Multiple contiguous axial images were obtained through the abdomen and pelvis after the uneventful administration of intravenous contrast. All CT scans use one or more of the following dose optimizing techniques: automated exposure control, MA and/or KvP adjustment based on patient size and exam type or iterative reconstruction. HISTORY: Abdominal pain. Pelvic pressure. COMPARISON: None available. FINDINGS: The heart is unremarkable. The included lung bases are clear. The liver, spleen, pancreas, adrenal glands, and kidneys have a normal appearance. Benign cortical cysts are seen in the kidneys. The gallbladder is nondistended. There is no pathologically enlarged mesenteric or retroperitoneal adenopathy. The bowel loops are nondilated. The appendix is visualized in the right lower quadrant and has a normal appearance. There is no free air. No acute osseous abnormalities. Ureters and bladder are grossly normal. Trace physiologic free fluid is seen in the pelvis. Dominant follicle/cyst is seen in the left ovary. There is no free air, loculated collection, or adenopathy in the pelvis. IMPRESSION: 1. No evidence of bowel obstruction. Normal appendix. 2. Dominant follicle/cyst in the left ovary with trace physiologic free fluid in the pelvis. Dictated by: Dictated on workstation # [id number]
[2021-09-20 23:31] VITALS: BP 139/99
== END 2021-09-20 23:29 | disposition home or self-care (01) ==
LOC: EDUNIT# 21:42 → ER 21:45
DX: N83.202 Unspecified ovarian cyst, left side (principal); F17.210 Nicotine dependence, cigarettes, uncomplicated; Z32.02 Encounter for pregnancy test, result negative
CPT/HCPCS: 36415; 74177; 80053; 81000; 84703; 85025

== ENCOUNTER 2021-10-16 21:47 | Emergency (ER) | payer SELFPAY ==
[~2021-10-16] VITALS: Ht 165 cm; Wt 85.3 kg
[2021-10-16 21:56] VITALS: BP 142/85
[2021-10-16] MEDS ORDERED: AMOXICILLIN 500 MG (POLYMOX) CAP PO STA (22:09)
--- NOTE | 2021-10-16 22:16 | ED EENT ---
History of Present Illness General Chief Complaint: Oral/Throat Problems Stated Complaint: COUGH X 3 WKS, WHITE SPOTS IN THROAT Nursing Triage Note: c/o cough x3 weeks, sore throat x2 days Source: patient Exam Limitations: no limitations History of Present Illness Date Seen by Provider: Oct 16, 2021 Time Seen by Provider: 22:11 Initial Comments This is a 31-year-old female that presents to the emergency room for evaluation of cough, congestion and sore throat. She states she has had symptoms for 3 weeks and now she noticed white spots on her throat. Timing/Duration: gradual Prearrival Treatment: no prearrival treatment Allergies and Home Medications Allergies Coded Allergies: No Known Drug Allergies (Unverified , 07/13/16) Patient Home Medication List Home Medication List Reviewed: Yes Discontinued Medications Amoxicillin/Potassium Clav (Augmentin 875-125 Tablet) 1 Each Tablet, 1 EACH PO BID Discontinued Reason: No Longer Taking Prescribed by: ALE KURTZ on 11/17/18 1302 Last Action: Discontinued Nitrofurantoin Monohyd/M-Cryst (Macrobid 100 mg Capsule) 100 Mg Capsule, 1 TAB PO BID Discontinued Reason: No Longer Taking Prescribed by: LILI ELIZALDE on 10/01/20101 Last Action: Discontinued Phenazopyridine HCl (Pyridium) 200 Mg Tablet, 1 TAB PO TID Discontinued Reason: No Longer Taking Prescribed by: LILI ELIZALDE on 10/01/20101 Last Action: Discontinued Sulfamethoxazole/Trimethoprim (Bactrim Ds Tablet) 1 Each Tablet, 1 EACH PO BID Discontinued Reason: No Longer Taking Prescribed by: ALE KURTZ on 08/15/18 2145 Last Action: Discontinued Review of Systems Review of Systems Constitutional: no symptoms reported Eyes: No Symptoms Reported Ears: No Symptoms Reported Nose: congestion Throat: pain Respiratory: cough Cardiovascular: no symptoms reported Past Ejjiqss-Tojwiq-Wmwamh Hx Patient Social History Tobacco Use?: Yes Substance use?: No Alcohol Use?: No Pt feels they are or have been: No Immunizations Up To Date Tetanus Booster (TDap): Less than 5yrs PED Vaccines UTD: No Seasonal Allergies Seasonal Allergies: No Past Medical History Surgery/Hospitalization HX: bmt, ovarian cyst Surgeries: Yes (BMT'S) Ear Surgery Respiratory: No Cardiac: No Neurological: No Reproductive Disorders: No Sexually Transmitted Disease: No Genitourinary: No Gastrointestinal: No Musculoskeletal: No Endocrine: No HEENT: Yes (BMT'S CHILD) Chronic Ear Infection Cancer: No Psychosocial: No Integumentary: No Blood Disorders: No Family Medical History No Pertinent Family Hx Physical Exam Vital Signs Vital Signs - First Documented 10/16/21 21:56 Temp 37.1 Pulse 106 Resp 16 B/P (MAP) 142/85 (104) Pulse Ox 98 O2 Delivery Room Air Height, Weight, BMI Height: 5'5.00" Weight: 170lbs. oz. 77.891953vq; 31.00 BMI Method:Estimated General Appearance: WD/WN, no apparent distress Eyes: bilateral eye normal inspection, bilateral eye PERRL, bilateral eye EOMI Ears: bilateral ear auricle normal, bilateral ear canal normal, bilateral ear TM normal Mouth/Throat: other (Pharyngeal erythema with small amounts of exudate) Neck: non-tender, full range of motion Cardiovascular: regular rate, rhythm Respiratory: chest non-tender, wheezing Neurologic/Psychiatric: delivery director II-XII nml as tested, oriented x 3 Skin: normal color, warm/dry Progress/Results/Core Measures Results/Orders My Orders Orders - SYED BELLA Amoxicillin Capsule (Polymox Capsule) (10/16/21 22:09) Vital Signs/I&O 10/16/21 21:56 Temp 37.1 Pulse 106 Resp 16 B/P (MAP) 142/85 (104) Pulse Ox 98 O2 Delivery Room Air Blood Pressure Mean: 104 Departure Communication (Admissions) Patient is afebrile, nontoxic and in no distress. She does have acute pharyngitis and mild bronchitis. We will treat with Augmentin and symptomatic therapy Impression Primary Impression: Acute bronchitis Additional Impression: Acute pharyngitis Disposition: 01 HOME, SELF-CARE Condition: Stable Departure-Patient Inst. Decision time for Depature: 22:17 Referrals: NO,LOCAL PHYSICIAN (PCP/Family) Primary Care Physician Patient Instructions: Bronchitis, Adult ED Scripts Promethazine/Dextromethorphan (Promethazine-Dm Syrup) 6.25 Mg-15 Mg/5 Ml Syrup 5 ML PO Q6H PRN for COUGH for 7 Days, #240 ML Prov: SYED BELLA 10/16/21 Albuterol Sulfate (PROAIR HFA) 1 Puff Puff 2 PUFF IH Q4H for Cough for 7 Days, #1 EA 1 PUFF = 90 MCG Prov: SYED BELLA 10/16/21 Amoxicillin/Potassium Clav (Amox Tr-K Clv 875-125 mg Tab) 875 Mg-125 Mg Tablet 1 EACH PO BID for 10 Days, #20 TAB Prov: SYED BELLA 10/16/21 SYED BELLA Oct 16, 2021 22:16
[2021-10-16] MEDS ORDERED: D-ME473S11 PO (22:18)
[2021-10-16] MEDS ORDERED: AMOX1TAB12 PO (22:18)
[2021-10-16] MEDS ORDERED: RT-ALBUINH IH (22:18)
== END 2021-10-16 22:23 | disposition home or self-care (01) ==
LOC: EDUNIT# 21:47 → ER 21:48
DX: J02.9 Acute pharyngitis, unspecified (principal); J20.9 Acute bronchitis, unspecified
CPT/HCPCS: 99283

== ENCOUNTER 2021-12-14 22:42 | Emergency (ER) | payer SELFPAY ==
[~2021-12-14 22:42] MED LIST changes: +AMOX1TAB12 PO; +D-ME473S11 PO; +RT-ALBUINH IH
--- NOTE | 2021-12-14 23:06 | ED Back Pain ---
General Chief Complaint: Oral/Throat Problems Stated Complaint: BACK PAIN Source of Information: Patient Exam Limitations: No Limitations History of Present Illness Date Seen by Provider: Dec 14, 2021 Time Seen by Provider: 22:49 Initial Comments Patient to the ER by private conveyance from home with her child and chief complaint that about an hour prior to arrival she had a sharp, sudden onset of right flank pain radiating down her right side. No dysuria hematuria or history of kidney stones. She feels warm but no fevers or chills nausea or vomiting. She has a history of ovarian cysts but no other significant medical history. She has not taken anything for the pain yet. Allergies and Home Medications Allergies Coded Allergies: No Known Drug Allergies (Unverified , 07/13/16) Patient Home Medication List Home Medication List Reviewed: Yes Acyclovir (Acyclovir) 800 Mg Tablet, 800 MG PO 5XD Prescribed by: ARTHUR PAREDES on 12/15/2118 Albuterol Sulfate (Proair Hfa) 1 Puff Puff, 2 PUFF IH Q4H Prescribed by: Sancho Silva on 10/16/212217 Amoxicillin/Potassium Clav (Amox Tr-K Clv 875-125 mg Tab) 875 Mg-125 Mg Tablet, 1 EACH PO BID Prescribed by: Sancho Silva on 10/16/212217 Gabapentin (Gabapentin) 100 Mg Capsule, 100-200 MG PO Q6H PRN for PAIN-BREAKTHRO UGH Prescribed by: ARTHUR PAREDES on 12/15/2118 Methylprednisolone (Methylprednisolone Dose Pack) 4 Mg Tab.ds.pk, 4 MG PO UD Prescribed by: ARTHUR PAREDES on 12/15/2118 Naproxen (Naprosyn) 500 Mg Tablet, 500 MG PO BID Prescribed by: ARTHUR PAREDES on 12/15/21 003 Promethazine/Dextromethorphan (Promethazine-Dm Syrup) 6.25 Mg-15 Mg/5 Ml Syrup, 5 ML PO Q6H PRN for COUGH Prescribed by: Sancho Silva on 10/16/212217 Review of Systems Constitutional: No chills, No diaphoresis EENTM: No ear discharge, No ear pain Respiratory: No cough, No short of breath Cardiovascular: No edema, No palpitations Gastrointestinal: No abdominal pain, No constipation, No diarrhea, No nausea, No vomiting Genitourinary: see HPI; No discharge, No dysuria Musculoskeletal: see HPI All Other Systems Reviewed Negative Unless Noted: Yes Past Xdxrmuo-Fvontr-Dxqqmy Hx Patient Social History Tobacco Use?: Yes Tobacco type used: Cigarettes Smoking Status: Current Everyday Smoker Use of E-Cig and/or Vaping dev: No Substance use?: No Alcohol Use?: No Pt feels they are or have been: No Immunizations Up To Date Tetanus Booster (TDap): Less than 5yrs PED Vaccines UTD: No Influenza Vaccine Up-to-Date: No; Not Current Seasonal Allergies Seasonal Allergies: No Past Medical History Surgery/Hospitalization HX: bmt, ovarian cyst Surgeries: Yes (BMT'S) Ear Surgery Respiratory: No Cardiac: No Neurological: No Reproductive Disorders: No Sexually Transmitted Disease: No Genitourinary: No Gastrointestinal: No Musculoskeletal: No Endocrine: No HEENT: Yes (BMT'S CHILD) Chronic Ear Infection Cancer: No Psychosocial: No Integumentary: No Blood Disorders: No Family Medical History No Pertinent Family Hx Physical Exam Vital Signs Vital Signs - First Documented 12/14/21 22:56 Temp 36.8 Pulse 101 Resp 18 B/P (MAP) 160/95 (116) Pulse Ox 100 O2 Delivery Room Air Capillary Refill : Height, Weight, BMI Height: 5'5.00" Weight: 170lbs. oz. 77.550319dj; 31.00 BMI Method:Estimated General Appearance: WD/WN, Mild Distress HEENT: PERRL/EOMI, Pharynx Normal, Moist Mucous Membranes Neck: Full Range of Motion, Normal Inspection Cardiovascular: Regular Rate, Rhythm, Normal Peripheral Pulses Respiratory: Lungs Clear, Normal Breath Sounds, No Accessory Muscle Use, No Respiratory Distress Peripheral Pulses: 2+ Radial Pulses (R), 2+ Radial Pulses (L) Gastrointestinal: Normal Bowel Sounds, Non Tender, Soft Back: Normal Inspection, No Vertebral Tenderness; No CVA Tenderness (L); CVA Tenderness (R) Extremity: Normal Capillary Refill, Normal Inspection Skin: Normal Color, Warm/Dry Progress/Results/Core Measures Results/Orders Lab Results Laboratory Tests Test 12/14/21 23:10 Range/Units White Blood Count 9.1 4.3-11.0 10^3/uL Red Blood Count 4.79 3.80-5.11 10^6/uL Hemoglobin 14.5 11.5-16.0 g/dL Hematocrit 43 35-52 % Mean Corpuscular Volume 90 80-99 fL Mean Corpuscular Hemoglobin 30 25-34 pg Mean Corpuscular Hemoglobin Concent 34 32-36 g/dL Red Cell Distribution Width 13.2 10.0-14.5 % Platelet Count 266 130-400 10^3/uL Mean Platelet Volume 9.9 9.0-12.2 fL Immature Granulocyte % (Auto) 1 % Neutrophils (%) (Auto) 53 42-75 % Lymphocytes (%) (Auto) 35 12-44 % Monocytes (%) (Auto) 6 0-12 % Eosinophils (%) (Auto) 5 0-10 % Basophils (%) (Auto) 0 0-10 % Neutrophils # (Auto) 4.8 1.8-7.8 10^3/uL Lymphocytes # (Auto) 3.2 1.0-4.0 10^3/uL Monocytes # (Auto) 0.5 0.0-1.0 10^3/uL Eosinophils # (Auto) 0.4 H 0.0-0.3 10^3/uL Basophils # (Auto) 0.0 0.0-0.1 10^3/uL Immature Granulocyte # (Auto) 0.1 0.0-0.1 10^3/uL Urine Color YELLOW Urine Clarity CLEAR Urine pH 6.0 5-9 Urine Specific [place] 1.015 L 1.016-1.022 Urine Protein NEGATIVE NEGATIVE Urine Glucose (UA) NEGATIVE NEGATIVE Urine Ketones NEGATIVE NEGATIVE Urine Nitrite NEGATIVE NEGATIVE Urine Bilirubin NEGATIVE NEGATIVE Urine Urobilinogen 0.2 < = 1.0 MG/DL Urine Leukocyte Esterase NEGATIVE NEGATIVE Urine RBC (Auto) NEGATIVE NEGATIVE Urine RBC NONE /HPF Urine WBC NONE /HPF Urine Squamous Epithelial Cells 2-5 /HPF Urine Crystals NONE /LPF Urine Bacteria TRACE /HPF Urine Casts NONE /LPF Urine Mucus NEGATIVE /LPF Urine Culture Indicated NO Sodium Level 144 135-145 MMOL/L Potassium Level 3.8 3.6-5.0 MMOL/L Chloride Level 108 H 98-107 MMOL/L Carbon Dioxide Level 22 21-32 MMOL/L Anion Gap 14 5-14 MMOL/L Blood Urea Nitrogen 9 7-18 MG/DL Creatinine 0.81 0.60-1.30 MG/DL Estimat Glomerular Filtration Rate 100 BUN/Creatinine Ratio 11 Glucose Level 106 H 70-105 MG/DL Calcium Level 9.7 8.5-10.1 MG/DL Corrected Calcium 9.5 8.5-10.1 MG/DL Total Bilirubin 0.6 0.1-1.0 MG/DL Aspartate Amino Transf (AST/SGOT) 18 5-34 U/L Alanine Aminotransferase (ALT/SGPT) 23 0-55 U/L Alkaline Phosphatase 69 40-136 U/L C-Reactive Protein High Sensitivity 0.33 0.00-0.50 MG/DL Total Protein 7.4 6.4-8.2 GM/DL Albumin 4.3 3.2-4.5 GM/DL My Orders Orders - ARTHUR PAREDES Ua Culture If Indicated (12/14/21 23:01) Cbc With Automated Diff (12/14/21 23:01) Comprehensive Metabolic Panel (12/14/21 23:01) Hs C Reactive Protein (12/14/21 23:01) Ct Abd/Pelvis Wo(Kidney Stone) (12/14/21 23:01) Urine Bedside (12/14/21 23:01) Ketorolac Injection (Toradol Injection) (12/14/21 23:15) Ed Iv/Invasive Line Start (12/14/21 23:06) Ns Iv 1000 Ml (Sodium Chloride 0.9%) (12/14/21 23:15) Acetaminophen Tablet (Tylenol Tablet) (12/15/21 00:30) Gabapentin Capsule/Tablet (Neurontin Cap (12/15/21 00:30) Medications Given in ED Vital Signs/I&O 12/14/21 12/15/21 22:56 00:31 Temp 36.8 Pulse 101 87 Resp 18 18 B/P (MAP) 160/95 (116) 151/89 Pulse Ox 100 100 O2 Delivery Room Air Room Air Progress Progress Note #1: Time: 23:05 Progress Note Start with a liter of fluids, Toradol, labs and a CT without IV contrast kidney stone protocol. Urine and bedside . Progress Note #2: Time: 00:15 Progress Note Patient states the Toradol did not help her pain. Since she is painful to even light touch on her skin it is possible that she might be developing shingles. We can put her on some steroids, acyclovir and give her some gabapentin and see if this helps. The other differentials include a pinched nerve in the back. Diagnostic Imaging Diagonstic Imaging: CT Plain Films/CT/US/NM/MRI: abdomen, pelvis Comments No acute findings. Small benign-appearing cyst in the right kidney. [facility] [place], [place] NAME: CESAR [facility] REC#: [id number] PT STATUS: DEP ER : 1990 PHYSICIAN: ARTHUR PAREDES MD ADMIT DATE: 12/14/21/ER Signed Date of Exam:12/14/21 CT ABD/PELVIS WO(KIDNEY STONE) PROCEDURE: CT urinary tract, rule out kidney stone. TECHNIQUE: Multiple contiguous axial images were obtained through the abdomen and pelvis without the use of intravenous contrast. Auto Exposure Controls were utilized during the CT exam to meet ALARA standards for radiation dose reduction. INDICATION: Right flank pain. History of ovarian cysts. EXAMINATION: CT abdomen and pelvis without contrast 12/14/2021 COMPARISON: 09/20/2021 FINDINGS: The lungs demonstrate scattered atelectasis or scarring bilaterally. The nonopacified liver and spleen appear unremarkable. The pancreas and adrenal glands unremarkable. Gallbladder contracted. There is no nephrolithiasis or hydronephrosis. No ureteral stones. Small hypodensities in the kidneys likely cysts. The appendix appears normal. There is a small fat-containing umbilical hernia. There is a nonobstructive bowel gas pattern. There is no ascites. No free air. There is no acute osseous abnormality. IMPRESSION: 1. No nephrolithiasis or hydronephrosis with no ureteral stones. Simple appearing cyst noted in the right kidney. Findings agree with the preliminary report. Dictated by: Dictated on workstation # [id number] Dict: 12/15/21 0702 Trans: 12/15/21 1030 [facility] [id number] Interpreted by: RAHEEM MARIA MD Electronically signed by: RAHEEM MARIA MD 12/15/21 1030 Reviewed: Reviewed [facility] Study, Reviewed by Me Departure Impression Primary Impression: Back pain Qualified Codes: M54.6 - Pain in thoracic spine Additional Impression: Shingles Qualified Codes: B02.9 - Zoster without complications Disposition: HOME, SELF-CARE Condition: Stable Departure-Patient Inst. Decision time for Depature: 00:16 Referrals: NO,LOCAL PHYSICIAN (PCP/Family) Primary Care Physician Patient Instructions: Upper Back Pain (DC), Shingles (DC) Add. Discharge Instructions: Your pain may be resultant from a pinched nerve in your back or possibly even shingles which is a viral infection of the nerve. Often within a day or 2 it will result in a rash with small little clear blisters, itching and pain to even light touch of the skin. We will start you on acyclovir 5 times a day to treat the possibility of shingles. Will also put you on a steroid which would help whether it is a pinched nerve or shingles. Take the Medrol Dosepak as prescribed. Naproxen 500 mg twice a day on a scheduled basis until the pain improves. Gabapentin 1 or 2 tablets every 6 hours as needed for breakthrough pain. Gabapentin may cause drowsiness and should not be mixed with alcohol. Follow-up with your primary care doctor within the next 1 to 2 weeks to help manage symptoms. All discharge instructions reviewed with patient and/or family. Voiced understanding. Scripts Naproxen (Naprosyn) 500 Mg Tablet 500 MG PO BID for 14 Days, #28 TAB 0 Refills Prov: ARTHUR PAREDES 12/15/21 Acyclovir (Acyclovir) 800 Mg Tablet 800 MG PO 5XD for 7 Days, #35 TAB 0 Refills Prov: ARTHUR PAREDES 12/15/21 Methylprednisolone (Methylprednisolone Dose Pack) 4 Mg Tab.ds.pk 4 MG PO UD for 6 Days, #21 PKG 0 Refills PER DOSE PACK INSTRUCTIONS Prov: ARTHUR PAREDES 12/15/21 Gabapentin (Gabapentin) 100 Mg Capsule 100-200 MG PO Q6H PRN for PAIN-BREAKTHROUGH, #30 CAP 0 Refills Prov: ARTHUR PAREDES 12/15/21 Work/School Note: Work Release Form Date Seen in the Emergency Department: Dec 15, 2021 Return to Work: Dec 19, 2021 Restrictions: Need Release from Doctor Other Restrictions Listed Below: Do not lift, push or pull greater than 20 pounds until 12/26/2021. ARTHUR PAREDES Dec 14, 2021 23:06
[2021-12-14] MEDS ORDERED: NS IV 1000 ML 1,000 ML IV ONE (23:15)
[2021-12-14] MEDS ORDERED: KETOROLAC 30 MG/ML VIAL IVP ONE (23:15)
[2021-12-14 23:17] LABS: BILIRUBIN,URINE NEGATIVE (NEGATIVE); CLARITY,URINE CLEAR; COLOR,URINE YELLOW; GLUCOSE, URINE (UA) NEGATIVE (NEGATIVE); KETONES,URINE NEGATIVE (NEGATIVE); LEUKOCYTE ESTERASE ,URINE NEGATIVE (NEGATIVE); NITRITE,URINE NEGATIVE (NEGATIVE); PROTEIN,URINE NEGATIVE (NEGATIVE)
[2021-12-14 23:18] LABS: BASOPHILS % (AUTO) 0 % (0-10); EOSINOPHILS # (AUTO) 0.4 10^3/uL (0.0-0.3); EOSINOPHILS % (AUTO) 5 % (0-10); HEMATOCRIT 43 % (35-52); HEMOGLOBIN 14.5 g/dL (11.5-16.0); LYMPHOCYTES # (AUTO) 3.2 10^3/uL (1.0-4.0); LYMPHOCYTES % (AUTO) 35 % (12-44); MEAN CORPUSCULAR HEMOGLOBIN 30 pg (25-34); MEAN CORPUSCULAR HGB CONC 34 g/dL (32-36); MEAN CORPUSCULAR VOLUME 90 fL (80-99); MEAN PLATELET VOLUME 9.9 fL (9.0-12.2); MONOCYTES # (AUTO) 0.5 10^3/uL (0.0-1.0); MONOCYTES % (AUTO) 6 % (0-12); NEUTROPHILS # (AUTO) 4.8 10^3/uL (1.8-7.8); NEUTROPHILS % (AUTO) 53 % (42-75); PLATELET COUNT 266 10^3/uL (130-400); WHITE BLOOD COUNT 9.1 10^3/uL (4.3-11.0)
[2021-12-14 23:28] LABS: BACTERIA,URINE TRACE /HPF
[2021-12-14 23:32] LABS: ALBUMIN 4.3 GM/DL (3.2-4.5); POTASSIUM 3.8 MMOL/L (3.6-5.0)
[2021-12-14 23:33] LABS: CALCIUM 9.7 MG/DL (8.5-10.1)
[2021-12-14 23:35] LABS: TOTAL PROTEIN 7.4 GM/DL (6.4-8.2)
[2021-12-14 23:36] LABS: BILIRUBIN,TOTAL 0.6 MG/DL (0.1-1.0)
[2021-12-14 23:38] LABS: CREATININE SERUM 0.81 MG/DL (0.60-1.30)
[2021-12-15] MEDS ORDERED: METH4TAB10 PO (00:19)
[2021-12-15] MEDS ORDERED: GABA-486 PO (00:19)
[2021-12-15] MEDS ORDERED: ACYC-112 PO (00:19)
[2021-12-15] MEDS ORDERED: ACETAMINOPHEN 500 MG TAB (TYLENOL) PO ONE (00:30)
[2021-12-15] MEDS ORDERED: GABAPENTIN 100 MG (NEURONTIN) CAP PO ONE (00:30)
[2021-12-15] MEDS ORDERED: NAPR-1071 PO (00:30)
[2021-12-15 00:31] VITALS: BP 151/89
--- NOTE | 2021-12-15 07:10 | Diagnostic Imaging Report ---
PROCEDURE: CT urinary tract, rule out kidney stone. TECHNIQUE: Multiple contiguous axial images were obtained through the abdomen and pelvis without the use of intravenous contrast. Auto Exposure Controls were utilized during the CT exam to meet ALARA standards for radiation dose reduction. INDICATION: Right flank pain. History of ovarian cysts. EXAMINATION: CT abdomen and pelvis without contrast 12/14/2021 COMPARISON: 09/20/2021 FINDINGS: The lungs demonstrate scattered atelectasis or scarring bilaterally. The nonopacified liver and spleen appear unremarkable. The pancreas and adrenal glands unremarkable. Gallbladder contracted. There is no nephrolithiasis or hydronephrosis. No ureteral stones. Small hypodensities in the kidneys likely cysts. The appendix appears normal. There is a small fat-containing umbilical hernia. There is a nonobstructive bowel gas pattern. There is no ascites. No free air. There is no acute osseous abnormality. IMPRESSION: 1. No nephrolithiasis or hydronephrosis with no ureteral stones. Simple appearing cyst noted in the right kidney. Findings agree with the preliminary report. Dictated by: Dictated on workstation # [id number]
== END 2021-12-15 00:51 | disposition home or self-care (01) ==
LOC: EDUNIT# 22:42 → ER 22:43
DX: B02.9 Zoster without complications (principal); M54.9 Dorsalgia, unspecified; F17.210 Nicotine dependence, cigarettes, uncomplicated; Z28.310 Unvaccinated for COVID-19
CPT/HCPCS: 36415; 74176; 80053; 81000; 84703; 85025; 86141

== ENCOUNTER 2022-05-11 03:46 | Emergency (ER) | payer SELFPAY ==
[~2022-05-11] VITALS: Ht 162.6 cm; Wt 81.6 kg
[~2022-05-11 03:46] MED LIST changes: +ACYC-112 PO; +ALBU8.5H6 IH; +GABA-486 PO; +METH4TAB10 PO; +NAPR-1071 PO; -RT-ALBUINH IH
[2022-05-11] MEDS ORDERED: RT-ALBUTEROL HFA 8.5 GM INHALER IH ONE (04:15)
--- NOTE | 2022-05-11 04:21 | ED Dyspnea ---
General Chief Complaint: Chest Wall Stated Complaint: TIGHTNESS OF CHEST,SOB Nursing Triage Note: c/o chest tightness, squeezing, burning, pressure, soa after sneezing approx. 0100 Source of Information: Patient Exam Limitations: No Limitations History of Present Illness Date Seen by Provider: May 11, 2022 Time Seen by Provider: 04:03 Initial Comments 32-year-old female who is otherwise healthy presents for shortness of breath, burning sensation in her left anterior chest after sneezing at about 1 AM. Symptoms have been persistent which was her concern. She denies any fever chills nausea or vomiting. Cardiac history. No exertional symptoms. Burning in her chest is worse with deep inspiration. No unilateral lower extremity pain, swelling. No recent long distance travel or surgeries. Allergies and Home Medications Allergies Coded Allergies: No Known Drug Allergies (Unverified , 07/13/16) Patient Home Medication List Home Medication List Reviewed: Yes Albuterol Sulfate (Ventolin Hfa) 1 Puff Puff, 2 PUFF IH Q4H Prescribed by: Sancho Silva on 10/16/212217 Discontinued Medications Acyclovir (Acyclovir) 800 Mg Tablet, 800 MG PO 5XD Discontinued Reason: No Longer Taking Prescribed by: ARTHUR PAREDES on 12/15/2118 Last Action: Discontinued Amoxicillin/Potassium Clav (Amox Tr-K Clv 875-125 mg Tab) 875 Mg-125 Mg Tablet, 1 EACH PO BID Discontinued Reason: No Longer Taking Prescribed by: Sancho Silva on 10/16/212217 Last Action: Discontinued Gabapentin (Gabapentin) 100 Mg Capsule, 100-200 MG PO Q6H PRN for PAIN- BREAKTHROUGH Discontinued Reason: No Longer Taking Prescribed by: ARTHUR PAREDES on 12/15/2118 Last Action: Discontinued Methylprednisolone (Methylprednisolone Dose Pack) 4 Mg Tab.ds.pk, 4 MG PO UD Discontinued Reason: No Longer Taking Prescribed by: ARTHUR PAREDES on 12/15/2118 Last Action: Discontinued Naproxen (Naprosyn) 500 Mg Tablet, 500 MG PO BID Discontinued Reason: No Longer Taking Prescribed by: ARTHUR PAREDES on 12/15/2129 Last Action: Discontinued Promethazine/Dextromethorphan (Promethazine-Dm Syrup) 6.25 Mg-15 Mg/5 Ml Syrup, 5 ML PO Q6H PRN for COUGH Discontinued Reason: No Longer Taking Prescribed by: Sancho Silva on 10/16/212217 Last Action: Discontinued Review of Systems Review of Systems Constitutional: no symptoms reported EENTM: no symptoms reported Respiratory: short of breath Cardiovascular: chest pain Gastrointestinal: no symptoms reported Genitourinary: no symptoms reported Musculoskeletal: no symptoms reported Skin: no symptoms reported Psychiatric/Neurological: No Symptoms Reported Endocrine: No Symptoms Reported Hematologic/Lymphatic: No Symptoms Reported Past Hvrcmuc-Tosbfb-Wysozq Hx Patient Social History Tobacco Use?: Yes Substance use?: No Alcohol Use?: No Pt feels they are or have been: No Immunizations Up To Date Tetanus Booster (TDap): Less than 5yrs PED Vaccines UTD: No First/Initial COVID19 Vaccinat: na Seasonal Allergies Seasonal Allergies: No Past Medical History Surgery/Hospitalization HX: bmt, ovarian cyst Surgeries: Yes (BMT'S) Ear Surgery Respiratory: No Cardiac: No Neurological: No Last Menstrual Period: May 04, 2022 Reproductive Disorders: No Sexually Transmitted Disease: No Genitourinary: No Gastrointestinal: No Musculoskeletal: No Endocrine: No HEENT: Yes (BMT'S CHILD) Chronic Ear Infection Cancer: No Psychosocial: No Integumentary: No Blood Disorders: No Family Medical History Reviewed Nursing Family Hx No Pertinent Family Hx Physical Exam Vital Signs Vital Signs - First Documented 05/11/22 03:53 Temp 37.1 Pulse 77 Resp 16 B/P (MAP) 120/88 (99) Pulse Ox 96 O2 Delivery Room Air Capillary Refill : Less Than 3 Seconds Height, Weight, BMI Height: 5'5.00" Weight: 170lbs. oz. 77.207898yu; 30.00 BMI Method:Estimated General Appearance: No Apparent Distress, WD/WN HEENT: Normal ENT Inspection, Pharynx Normal Neck: Full Range of Motion, Normal Inspection, Non Tender, Supple Respiratory: No Accessory Muscle Use, No Respiratory Distress, Wheezing (Mild inspiratory wheezing) Cardiovascular: Regular Rate, Rhythm, No Murmur, Normal Peripheral Pulses Gastrointestinal: Normal Bowel Sounds, No Organomegaly, No Pulsatile Mass, Non Tender Extremity: Normal Capillary Refill, Normal Inspection, Normal Range of Motion, Non Tender, No Calf Tenderness, No Pedal Edema Neurologic/Psychiatric: Alert, Oriented x3, No Motor/Sensory Deficits Skin: Normal Color, Warm/Dry Progress/Results/Core Measures Results/Orders My Orders Orders - FELIPE LE DO Chest 1 View, Ap/Pa Only (05/11/22 04:11) Albuterol Inhaler (Albuterol) (05/11/22 04:15) Medications Given in ED Current Medications Medications Dose Ordered Sig/Angel Route Start Time Stop Time Status Last Admin Dose Admin Albuterol Sulfate 2 gm ONCE ONCE IH 05/11/22 04:15 05/11/22 04:16 DC 05/11/22 04:20 2 GM Vital Signs/I&O 05/11/22 03:53 Temp 37.1 Pulse 77 Resp 16 B/P (MAP) 120/88 (99) Pulse Ox 96 O2 Delivery Room Air Blood Pressure Mean: 99 Departure Communication (Admissions) Patient is hemodynamically stable. She does have some mild wheezing on exam, unclear if this is from chronic smoking or acute. Get a chest x-ray which is negative. Her pain is reproducible on exam, worse with deep inspiration. Symptoms most consistent with pulling a muscle or getting around after sneezing. She has no risk factors for ACS. No indication for labs at this time. Impression Primary Impression: Chest wall pain Disposition: HOME, SELF-CARE Condition: Stable Departure-Patient Inst. Referrals: NO,LOCAL PHYSICIAN (PCP/Family) Primary Care Physician Patient Instructions: Chest Pain That Is Not Caused by the Heart (DC) Add. Discharge Instructions: I think he likely irritated the muscle or rib when you sneeze. Use ibuprofen and Tylenol for pain. Your chest x-ray is normal, no evidence for pneumonia. Use the inhaler as needed. Return to the emergency department for any severe concerns. All discharge instructions reviewed with patient and/or family. Voiced understanding. FELIPE LE DO May 11, 2022 04:20
[2022-05-11 04:47] VITALS: BP 114/82
--- NOTE | 2022-05-11 05:51 | Diagnostic Imaging Report ---
Indication: Shortness of breath, wheezing Portable chest 4:10 AM Heart size and pulmonary vascularity are normal. Lungs are clear. There are no effusions or pneumothoraces. IMPRESSION: Negative chest Dictated by: Dictated on workstation # [id number]
== END 2022-05-11 04:49 | disposition home or self-care (01) ==
LOC: EDUNIT# 03:46 → ER 03:48
DX: R07.1 Chest pain on breathing (principal); R06.2 Wheezing; Z28.310 Unvaccinated for COVID-19
CPT/HCPCS: 71045

== ENCOUNTER 2022-05-22 12:31 | Emergency (ER) | payer SELFPAY ==
[~2022-05-22] VITALS: Ht 165 cm; Wt 95.0 kg
--- NOTE | 2022-05-22 13:02 | ED Lower Extremity ---
General Chief Complaint: Lower Extremity Stated Complaint: [facility] [place] [facility] Nursing Triage Note: PT STATES SHE WOKE WITH A CRAMP IN [place], [place]. [facility] SENT THE PT HERE STATING IT COULD BE A BLOOD CLOT. STATES PLAYING CATCH WITH A FOOTBALL THE DAY BEFORE YESTERDAY, RUNNING MORE THAN NORMAL. History of Present Illness Date Seen by Provider: May 22, 2022 Time Seen by Provider: 12:58 Allergies and Home Medications Allergies Coded Allergies: No Known Drug Allergies (Unverified , 07/13/16) Patient Home Medication List Albuterol Sulfate (Ventolin Hfa) 1 Puff Puff, 2 PUFF IH Q4H Prescribed by: Sancho Silva on 10/16/218 Past Sfqxlns-Monxdv-Qxshtb Hx Patient Social History Tobacco Use?: Yes Tobacco type used: Cigarettes Smoking Status: Current Everyday Smoker Substance use?: No Alcohol Use?: No Immunizations Up To Date Tetanus Booster (TDap): Less than 5yrs PED Vaccines UTD: No First/Initial COVID19 Vaccinat: na Second COVID19 Vaccination Abisai: na Third COVID19 Vaccination Date: na Seasonal Allergies Seasonal Allergies: No Past Medical History Surgery/Hospitalization HX: bmt, ovarian cyst Surgeries: Yes (BMT'S) Ear Surgery Respiratory: No Cardiac: No Neurological: No Last Menstrual Period: May 01, 2022 Reproductive Disorders: No Sexually Transmitted Disease: No Genitourinary: No Gastrointestinal: No Musculoskeletal: No Endocrine: No HEENT: Yes (BMT'S CHILD) Chronic Ear Infection Cancer: No Psychosocial: No Integumentary: No Blood Disorders: No Family Medical History No Pertinent Family Hx Physical Exam Vital Signs Vital Signs - First Documented 05/22/22 12:38 Temp 37.0 Pulse 89 Resp 18 B/P (MAP) 130/86 (101) O2 Delivery Room Air Capillary Refill : Less Than 3 Seconds Height, Weight, BMI Height: 5'5.00" Weight: 170lbs. oz. 77.199898mj; 34.00 BMI Method:Estimated Progress/Results/Core Measures Results/Orders Vital Signs/I&O 05/22/22 12:38 Temp 37.0 Pulse 89 Resp 18 B/P (MAP) 130/86 (101) O2 Delivery Room Air Blood Pressure Mean: 101 Departure Impression Primary Impression: Paresthesia of left lower extremity Disposition: 01 HOME, SELF-CARE Condition: Stable Departure-Patient Inst. Decision time for Depature: 13:07 Referrals: [facility] (PCP/Family) Primary Care Physician Patient Instructions: Paresthesia (DC) Add. Discharge Instructions: If you do develop pain or leg swelling, rash or any other concerning symptoms, please come back to the ER for re-evaluation. Follow up with your primary care as needed. Copy Copies To 1: AUGUSTO TAYLOR KATHRYN M MD May 22, 2022 13:02
[2022-05-22 13:13] VITALS: BP 130/86
== END 2022-05-22 13:13 | disposition home or self-care (01) ==
LOC: EDUNIT# 12:31 → ER 12:33
DX: R20.2 Paresthesia of skin (principal); F17.210 Nicotine dependence, cigarettes, uncomplicated; Z28.310 Unvaccinated for COVID-19
CPT/HCPCS: 99281

== ENCOUNTER 2022-09-18 04:49 | Emergency (ER) | payer SELFPAY ==
[~2022-09-18] VITALS: Ht 165.1 cm; Wt 91.0 kg
[~2022-09-18 04:49] MED LIST changes: -D-ME473S11 PO; +PROM473S15 PO
[2022-09-18 05:02] VITALS: BP 131/89
[2022-09-18] MEDS ORDERED: RT-ALBUTEROL HFA 8.5 GM INHALER IH STA (05:05)
--- NOTE | 2022-09-18 05:19 | ED General ---
General Chief Complaint: Respiratory Problems Stated Complaint: STS CHEST IS HEAVY WHEN BREATHES,SOB Nursing Triage Note: Pt presents with c/o chest burning and heaviness with breathing that started approx 2 nights ago. Pt denies fever, and exposure to any illness. Pt states she's been taking tylenol. Source of Information: Patient Exam Limitations: No Limitations (MARLEN BUCK MD) History of Present Illness Date Seen by Provider: Sep 18, 2022 Time Seen by Provider: 04:58 Initial Comments This 32-year-old young lady presents to the emergency room with complaint of chest heaviness and burning in her chest with breathing. This is accompanied by dyspnea on exertion. She denies fever or chills. Symptoms started 2 nights ago. She has been unable to sleep this morning due to her discomfort. She has used inhalers in the past for bronchitis but has not used an inhaler for this episode of symptoms. She smokes but denies any other significant health history. She has no local doctor. (MARLEN BUCK MD) Allergies and Home Medications Allergies Coded Allergies: fentanyl (Verified Adverse Reaction, Unknown, itching, 09/18/22) Patient Home Medication List Home Medication List Reviewed: Yes (MARLEN BUCK MD) Albuterol Sulfate (Ventolin Hfa) 1 Puff Puff, 2 PUFF IH Q4H Prescribed by: Sancho Silva on 10/16/212217 Albuterol Sulfate (Ventolin Hfa) 90 Mcg Hfa.aer.ad, 2 PUFF INH Q6H PRN for SHORTNESS OF BREATH Prescribed by: ARELIS GRIMES on 09/18/22 0657 Review of Systems Review of Systems Constitutional: no symptoms reported EENTM: no symptoms reported Respiratory: see HPI Cardiovascular: see HPI Gastrointestinal: no symptoms reported Genitourinary: no symptoms reported Musculoskeletal: no symptoms reported Skin: no symptoms reported Psychiatric/Neurological: No Symptoms Reported Hematologic/Lymphatic: No Symptoms Reported (MARLEN BUCK MD) Past Ctuhuym-Kbkkro-Yxsetr Hx Patient Social History Tobacco Use?: Yes Use of E-Cig and/or Vaping dev: No Substance use?: No Alcohol Use?: No (MARLEN BUCK MD) Immunizations Up To Date Tetanus Booster (TDap): Less than 5yrs PED Vaccines UTD: No First/Initial COVID19 Vaccinat: na Second COVID19 Vaccination Abisai: na Third COVID19 Vaccination Date: na (MARLEN BUCK MD) Seasonal Allergies Seasonal Allergies: No (MARLEN BUCK MD) Past Medical History Surgery/Hospitalization HX: bmt, ovarian cyst Surgeries: Yes (BMT'S) Ear Surgery Respiratory: No Cardiac: No Neurological: No : No Reproductive Disorders: Yes Female Reproductive Disorders: Ovarian Cyst Sexually Transmitted Disease: No Genitourinary: No Gastrointestinal: No Musculoskeletal: No Endocrine: No HEENT: Yes (BMT'S CHILD) Chronic Ear Infection Cancer: No Psychosocial: No Integumentary: No Blood Disorders: No (MARLEN BUCK MD) Family Medical History No Pertinent Family Hx (MARLEN BUCK MD) Physical Exam Vital Signs Vital Signs - First Documented 09/18/22 05:02 Temp 35.9 Pulse 87 Resp 16 B/P (MAP) 131/89 (103) (ARELIS GRIMES MD) Vital Signs Capillary Refill : Less Than 3 Seconds (MARLEN BUCK MD) Height, Weight, BMI Height: 5'5.00" Weight: 170lbs. oz. [id number]; 33.00 BMI Method:Estimated General Appearance: No Apparent Distress, WD/WN, Obese HEENT: PERRL/EOMI, Normal ENT Inspection Neck: Normal Inspection Respiratory: No Accessory Muscle Use, No Respiratory Distress; No Crackles; Wheezing, Other (prolonged expiratory phase) Cardiovascular: Regular Rate, Rhythm, No Edema, No Murmur Gastrointestinal: Non Tender, Soft Extremity: Normal Inspection, Non Tender, No Calf Tenderness, No Pedal Edema, Other (negative Kashif) Neurologic/Psychiatric: Alert, Oriented x3, No Motor/Sensory Deficits, Normal Mood/Affect Skin: Normal Color, Warm/Dry (MARLEN BUCK MD) Progress/Results/Core Measures Suspected Sepsis SIRS Temperature: Pulse: 87 Respiratory Rate: 16 Laboratory Tests 09/18/22 05:35: White Blood Count 8.9 Blood Pressure 131 /89 Mean: 103 Laboratory Tests 09/18/22 05:35: Creatinine 0.79, INR Comment 0.9, Platelet Count 254, Total Bilirubin 0.9 (MARLEN BUCK MD) Results/Orders Lab Results Laboratory Tests Test 09/18/22 05:35 Range/Units White Blood Count 8.9 4.3-11.0 10^3/uL Red Blood Count 5.17 H 3.80-5.11 10^6/uL Hemoglobin 15.5 11.5-16.0 g/dL Hematocrit 46 35-52 % Mean Corpuscular Volume 88 80-99 fL Mean Corpuscular Hemoglobin 30 25-34 pg Mean Corpuscular Hemoglobin Concent 34 32-36 g/dL Red Cell Distribution Width 13.3 10.0-14.5 % Platelet Count 254 130-400 10^3/uL Mean Platelet Volume 9.9 9.0-12.2 fL Immature Granulocyte % (Auto) 1 % Neutrophils (%) (Auto) 58 42-75 % Lymphocytes (%) (Auto) 31 12-44 % Monocytes (%) (Auto) 7 0-12 % Eosinophils (%) (Auto) 4 0-10 % Basophils (%) (Auto) 0 0-10 % Neutrophils # (Auto) 5.2 1.8-7.8 10^3/uL Lymphocytes # (Auto) 2.8 1.0-4.0 10^3/uL Monocytes # (Auto) 0.6 0.0-1.0 10^3/uL Eosinophils # (Auto) 0.3 0.0-0.3 10^3/uL Basophils # (Auto) 0.0 0.0-0.1 10^3/uL Immature Granulocyte # (Auto) 0.1 0.0-0.1 10^3/uL Prothrombin Time 12.2 12.2-14.7 SEC INR Comment 0.9 0.8-1.4 Activated Partial Thromboplast Time 29 24-35 SEC D-Dimer 0.49 0.00-0.49 UG/ML Sodium Level 143 135-145 MMOL/L Potassium Level 3.4 L 3.6-5.0 MMOL/L Chloride Level 108 H 98-107 MMOL/L Carbon Dioxide Level 25 21-32 MMOL/L Anion Gap 10 5-14 MMOL/L Blood Urea Nitrogen 10 7-18 MG/DL Creatinine 0.79 0.60-1.30 MG/DL Estimat Glomerular Filtration Rate 102 BUN/Creatinine Ratio 13 Glucose Level 113 H 70-105 MG/DL Calcium Level 9.5 8.5-10.1 MG/DL Corrected Calcium 9.2 8.5-10.1 MG/DL Magnesium Level 2.0 1.6-2.4 MG/DL Total Bilirubin 0.9 0.1-1.0 MG/DL Aspartate Amino Transf (AST/SGOT) 15 5-34 U/L Alanine Aminotransferase (ALT/SGPT) 19 0-55 U/L Alkaline Phosphatase 77 40-136 U/L Myoglobin 15.3 10.0-92.0 NG/ML Troponin I < 0.028 <0.028 NG/ML Total Protein 7.6 6.4-8.2 GM/DL Albumin 4.4 3.2-4.5 GM/DL Serum Test, Qualitative NEGATIVE NEGATIVE SARS-CoV-2 RNA (RT-PCR) Not Detected Not Detecte (ARELIS GRIMES MD) My Orders Orders - ARELIS GRIMES MD Ketorolac Injection (Toradol Injection) (09/18/22 06:45) (ARELIS GRIMES MD) Vital Signs/I&O 09/18/22 05:02 Temp 35.9 Pulse 87 Resp 16 B/P (MAP) 131/89 (103) (ARELIS GRIMES MD) Vital Signs/I&O Capillary Refill : Less Than 3 Seconds (MARLEN BUCK MD) Blood Pressure Mean: 103 Progress Note : Time: 05:36 Progress Note Because patient was noted to be wheezing on exam and have prolonged expiratory phase with auscultation, initial treatment was provided with an albuterol inhaler. On repeat examination this had resolved the wheezing and shorten the expiratory phase. However, it did not resolve the heaviness in her chest. Patient has risk factors that include obesity and smoking. Work-up will proceed with the chest pain panel, D-dimer, and COVID screening. Further treatment and evaluation will be pending results of these tests. (MARLEN BUCK MD) Progress Note : Time: 06:49 Progress Note Patient initially seen by overnight provider with cardiac rule out, D-dimer. Patient has been treated with 4 puffs of albuterol. Laboratory studies include CBC, Chem-12, coags, D-dimer, troponin, serum test, EKG and chest x- ray. Physical exam pertinent for well-developed well-nourished mildly obese female, no acute distress. Stable vital signs. Heart is regular, lungs are clear. Abdomen benign. No lower extremity edema or calf tenderness. Independently reviewed and interpreted by me. CBC is normal, chemistry is normal, troponin is undetectable. Coags normal, D-dimer negative. Chest x-ray shows some hazy possible early infiltrate in the right middle lobe. She has no accompanying crackles or wheezes on physical exam. EKG is normal sinus rhythm without ectopy or ST segment change. Patient states that the albuterol improved her symptoms of shortness of breath. She still has a little discomfort in the right chest and into her back. We will give her a little Toradol. Strongly encourage smoking cessation and discussed future risks of ongoing smoking. She states that she smokes about a pack a day. Discussed antibiotics versus conservative management. At this point she has no subjective fever, congestion or cough. Advised albuterol inhaler, smoking cessation, fluids Profen. She is comfortable with the plan of care. Return precautions provided in both verbal and written format. She is agreeable to the plan of care, all questions are so ught and answered. Patient is improved at discharge. (ARELIS GRIMES MD) ECG Initial ECG Impression Date: Sep 18, 2022 Initial ECG Impression Time: 05:42 Initial ECG Rate: 70 Initial ECG Rhythm: Normal Sinus Initial ECG Intervals: Normal Initial ECG Impression: Normal Comment Normal sinus rhythm with no ST elevation or depression. No abnormal intervals or axis deviation. (MARLEN BUCK MD) Diagnostic Imaging Diagonstic Imaging: Xray Plain Films/CT/US/NM/MRI: chest Comments [facility] [place], [place] NAME: CESAR OLSON [facility] REC#: [id number] PT STATUS: REG ER : 1990 PHYSICIAN: MARLEN BUCK MD ADMIT DATE: 09/18/22/ER Draft Date of Exam:09/18/22 CHEST 1 VIEW, AP/PA ONLY INDICATION: Chest pain. Comparison is made with prior examination 05/11/2022. FINDINGS: The heart size, mediastinal configuration, and pulmonary vascularity are within normal limits. There is no pleural effusion, pneumothorax, or pneumonia. The osseous structures are unremarkable. IMPRESSION: No acute cardiopulmonary abnormality. Dictated on workstation # [id number] Dict: 09/18/22 0632 Trans: 09/18/22 0642 [id number] Interpreted by: JAM HENDRICKSON MD Electronically signed by: (ARELIS GRIMES MD) Counseling-Symptomatic: 3-10 Minutes Follow-up with PCP to: Discuss Further Options (ARELIS GRIMES MD) Departure Impression Primary Impression: Acute bronchitis Qualified Codes: J20.9 - Acute bronchitis, unspecified Additional Impression: Chest heaviness Disposition: 01 HOME, SELF-CARE Condition: Improved Departure-Patient Inst. Decision time for Depature: 06:53 (ARELIS GRIMES MD) Referrals: [facility] (PCP/Family) Primary Care Physician Patient Instructions: Quitting Smoking ED Add. Discharge Instructions: Use the albuterol inhaler with the spacer, 2 puffs every 4-6 hours as needed for shortness of breath. Over the counter Ibuprofen 3 pills (with food) every 6 hours as needed for pain. Monitor for changing or worsening symptoms, such as fever, cough, worsening shortness of breath - if these occur, please return to the Emergency Department for re-evaluation. You should strongly consider quitting smoking, as this will decrease your risk for future ER visits and improve general health. Scripts Albuterol Sulfate (Ventolin Hfa) 90 Mcg Hfa.aer.ad 2 PUFF INH Q6H PRN for SHORTNESS OF BREATH, #1 UNIT 1 PUFF = 90 MCG Prov: ARELIS GRIMES MD 09/18/22 Copy Copies To 1: AUGUSTO TAYLOR JOSHUA T MD Sep 18, 2022 05:19 ARELIS GRIMES MD Sep 18, 2022 06:55
[2022-09-18 05:48] LABS: BASOPHILS % (AUTO) 0 % (0-10); EOSINOPHILS # (AUTO) 0.3 10^3/uL (0.0-0.3); EOSINOPHILS % (AUTO) 4 % (0-10); HEMATOCRIT 46 % (35-52); HEMOGLOBIN 15.5 g/dL (11.5-16.0); LYMPHOCYTES # (AUTO) 2.8 10^3/uL (1.0-4.0); LYMPHOCYTES % (AUTO) 31 % (12-44); MEAN CORPUSCULAR HEMOGLOBIN 30 pg (25-34); MEAN CORPUSCULAR HGB CONC 34 g/dL (32-36); MEAN CORPUSCULAR VOLUME 88 fL (80-99); MEAN PLATELET VOLUME 9.9 fL (9.0-12.2); MONOCYTES # (AUTO) 0.6 10^3/uL (0.0-1.0); MONOCYTES % (AUTO) 7 % (0-12); NEUTROPHILS # (AUTO) 5.2 10^3/uL (1.8-7.8); NEUTROPHILS % (AUTO) 58 % (42-75); PLATELET COUNT 254 10^3/uL (130-400); WHITE BLOOD COUNT 8.9 10^3/uL (4.3-11.0)
[2022-09-18 05:59] LABS: ALBUMIN 4.4 GM/DL (3.2-4.5)
[2022-09-18 06:00] LABS: CHLORIDE 108 MMOL/L (98-107); INR 0.9 (0.8-1.4); POTASSIUM 3.4 MMOL/L (3.6-5.0); PROTHROMBIN TIME PATIENT 12.2 SEC (12.2-14.7); SODIUM 143 MMOL/L (135-145)
[2022-09-18 06:01] LABS: CALCIUM 9.5 MG/DL (8.5-10.1)
[2022-09-18 06:02] LABS: GLUCOSE 113 MG/DL (70-105); TOTAL PROTEIN 7.6 GM/DL (6.4-8.2)
[2022-09-18 06:03] LABS: CARBON DIOXIDE 25 MMOL/L (21-32); FIBRIN DEGRADATION PRODUCTS 0.49 UG/ML (0.00-0.49)
[2022-09-18 06:04] LABS: BILIRUBIN,TOTAL 0.9 MG/DL (0.1-1.0)
[2022-09-18 06:05] LABS: ALKALINE PHOSPHATASE 77 U/L (40-136)
[2022-09-18 06:06] LABS: CREATININE SERUM 0.79 MG/DL (0.60-1.30); GFR ESTIMATED 102
[2022-09-18 06:07] LABS: BUN/CREATININE RATIO 13
[2022-09-18 06:08] LABS: ALANINE AMINOTRANSFERASE 19 U/L (0-55)
--- NOTE | 2022-09-18 06:42 | Diagnostic Imaging Report ---
INDICATION: Chest pain. Comparison is made with prior examination 05/11/2022. FINDINGS: The heart size, mediastinal configuration, and pulmonary vascularity are within normal limits. There is no pleural effusion, pneumothorax, or pneumonia. The osseous structures are unremarkable. IMPRESSION: No acute cardiopulmonary abnormality. Dictated by: Dictated on workstation # [id number]
[2022-09-18] MEDS ORDERED: KETOROLAC 15 MG/ML VIAL IVP ONE (06:45)
[2022-09-18] MEDS ORDERED: ALBU8.5H6 INH (06:57)
== END 2022-09-18 07:09 | disposition home or self-care (01) ==
LOC: EDUNIT# 04:49 → ER 04:52
DX: J20.9 Acute bronchitis, unspecified (principal); E66.9 Obesity, unspecified; F17.210 Nicotine dependence, cigarettes, uncomplicated; Z68.33 Body mass index [BMI] 33.0-33.9, adult; Z20.822 Contact with and (suspected) exposure to COVID-19
CPT/HCPCS: 36415; 71045; 80053; 83735; 83874; 84484; 84703; 85025; 85379; 85610; 85730; 87636; 93005; 93041